=== PATIENT | female | born 1960 | race American Indian/Alaskan Native ===

== ENCOUNTER 2016-07-30 06:59 | Observation (INO) | payer OTHER ==
[2016-07-30] MEDS ORDERED: LIDOCAINE 1% 2 ML INJ ONE (08:06)
[2016-07-30] MEDS ORDERED: MIDAZOLAM 2 MG/2 ML VIAL ONE (08:22)
[2016-07-30] MEDS ORDERED: DEXAMETHASONE 10 MG/ML VIAL IVP ONE (08:30)
[2016-07-30] MEDS ORDERED: ceFAZolin 2 GM/DEXTROSE 100 ML IV ONE (08:30)
[2016-07-30] MEDS ORDERED: ONDANSETRON 4 MG/2 ML VIAL IVP PRN (08:37)
[2016-07-30] MEDS ORDERED: OXYCODONE/APAP 5/325 TAB PO PRN (08:37)
[2016-07-30] MEDS ORDERED: fentaNYL 100 MCG/2 ML INJ ONE ×3 (08:39→11:32)
[2016-07-30] MEDS ORDERED: PROPOFOL 200 MG/20 ML VIAL ONE (08:40)
[2016-07-30] MEDS ORDERED: D5W 1/2 NS W/ 20 KCl/L 1,000 ML IV SCH (08:45)
[2016-07-30] MEDS ORDERED: THROMBIN (RECOMBINANT) 5,000 UNIT VIAL TP ONE (10:50)
[2016-07-30 11:49] LABS: IONIZED CALCIUM 1.17 MMOL/L (1.12-1.30)
--- NOTE | 2016-07-30 12:34 | GOP ---
[f rep st] OPERATIVE REPORT DATE OF OPERATION: 07/30/2016 SURGEON: John Koenig MD FRAUD PREVENTION ANALYST: Dr. Agustin Canchola. ANESTHESIA: General endotracheal. PREOPERATIVE DIAGNOSIS: Papillary carcinoma of thyroid. POSTOPERATIVE DIAGNOSIS: Papillary carcinoma of thyroid. PROCEDURE PERFORMED: Procedure planned and performed: Total thyroidectomy with possible right peritracheal node dissection. FINDINGS: Large right thyroid carcinoma invading into the strap musculature with extensive right paratracheal adenopathy, treated by total thyroidectomy with right paratracheal node dissection right and pretracheal node dissection. ESTIMATED BLOOD LOSS: 50 mL. DESCRIPTION OF PROCEDURE: The patient was placed on the operating table in the supine position. After induction of adequate general endotracheal anesthesia, sterile prep of the anterior neck was performed in the standard manner for thyroidectomy. The area surrounding the proposed incision was infiltrated utilizing 1% lidocaine with 1:100,000 parts of epinephrine. Sterile prep and drape was then completed. A curvilinear incision was then created midway between the cricoid cartilage and the sternal notch. The incision extended approximately 3 cm to either side of the midline. The incision was then carried down through the subcutaneous tissues and then through the platysma muscle. Flaps were elevated superiorly and inferiorly in a subplatysmal plane. The strap muscles were identified and then vertical division of the strap muscle was performed, reflecting the strap muscles laterally. Initially, the right thyroid lobe was addressed. Dissection proceeded along the superior and lateral aspect. It was noted that the process in the thyroid which had been previously biopsied and found to be consistent with papillary carcinoma, was invading the strap musculature. A portion of the strap musculature was transected and left in continuity with the right thyroid lobe. As dissection proceeded further cephalad, the superior thyroid pedicle was encountered. This was clamped, cut and tied with 2 2-0 silk ties distally and 2 -0 silk suture ligatures proximally. The superior pedicle was clamped in 2 separate portions. Once this was completed, further dissection proceeded along the superior aspect of the thyroid lobe. It was noted to have moderate infiltration of the mass into the surrounding strap musculature , and these muscle fibers were divided. Dissection then proceeded along the posterior aspect of the thyroid and inferior lobe. The inferior vascular pedicle was clamped, cut, and tied with 2- 0 silk ties. Dissection then proceeded in the tracheoesophageal groove and the recurrent laryngeal nerve was identified. This was dissected from distal to proximal and as this was performed, numerous enlarged lymph nodes were encountered. The thyroid tissue was then divided in the region of Kearney's ligament. This allowed reflection of the right thyroid lobe along the anterior aspect of the trachea. At this point, attention was directed to the left thyroid lobe. The strap musculature was then reflected off the left thyroid lobe. Initially, the superior vascular pedicle was encountered and this was clamped, cut and tied with a 2-0 silk tie distally and a 2-0 silk suture ligature proximally. Further dissection then proceeded along the interior aspect of the thyroid. An apparent parathyroid was encountered. This was reflected free from the thyroid tissue. The interior vascular pedicle was clamped, cut, and tied with 2-0 silk ties. Dissection then proceeded along the posterior aspect of the thyroid in the immediately supra capsular plane. As dissection proceeded further, the recurrent laryngeal nerve was identified. Its continuity was maintained . Dissection of the thyroid tissue off the trachea was performed, keeping the recurrent laryngeal nerve under direct visualization. The soft tissues of Kearney 's ligament were treated with the bipolar electrocautery and then sharply divided. Further division of the soft tissues between the thyroid and the trachea was performed utilizing Bovie electrocautery, and the thyroid gland was handed off. The gland was reexamined and no residual parathyroid tissue was noted to be present in continuity with the thyroid gland. The thyroid tissue was marked with a silk suture on its superior pole of the right thyroid lobe. Attention was then directed to right paratracheal node dissection. A number of enlarged lymph nodes had been encountered during the previous thyroidectomy. Attention was directed to the right recurrent laryngeal nerve. This was dissected from the region of the cricoarytenoid joint inferiorly almost to its passage into the upper chest. During this dissection, the carotid artery and innominate artery were encountered. Dissection of the large mass of lymph nodes in the paratracheal region was then performed, keeping the recurrent laryngeal nerve under direct visualization. Once the large packet of enlarged lymph nodes was removed, hemostasis was obtained by use of the bipolar electrocautery. After the large paratracheal node packet had been removed, keeping the recurrent laryngeal nerve intact and under close observation, attention was directed to an enlarged pretracheal node. This was removed utilizing Bovie electrocautery. The wound was then reexamined. A number of small bleeders were treated with the bipolar electrocautery. A 10-Thai Austyn-Tirado drain was then draped into the wound and sutured into place along the left lateral aspect of the wound. This was sutured in place with 2-0 silk suture ligature. The strap muscles were reapproximated in the vertical midline utilizing 3-0 Vicryl sutures , a deep layer closure of the wound was performed with interrupted 4-0 Monocryl sutures and the skin was closed with a running, locked 5-0 Prolene suture. At this point, the procedure was terminated. The patient was awakened and transferred to the post anesthesia recovery area in stable condition. FLUIDS REPLACED: 1200 mL. COMPLICATIONS: None. /[id number]/MODL MTDD
[2016-07-30] MEDS: HYDROCOD/APAP 7.5/325 IN 15ML UDCUP PO PRN ×2 (14:04→17:57)
--- NOTE | 2016-07-30 17:00 | SOAPPROG ---
SOAP Progress Note Assessment/Plan: Pt s/p total thyroidectomy with ode dissectiojn. Pt doing well. No numbness or tingling. o: neck - dressing intact Ionized calcium has not been updated yet. Plan: Pt doing well s/p total thyroid. plan for discharge in am. 07/30/16 16:50 Objective: Vital Signs Temp Pulse Resp BP Pulse Ox 36.4 C 74 12 125/76 H 96 07/30/16 15:32 07/30/16 15:32 07/30/16 15:32 07/30/16 15:32 07/30/16 15:32 07/29/16 07/30/16 07/31/16 05:59 05:59 05:59 Intake Total 1250 Output Total 65 Balance 1185 - Pending Discharge Pending Discharge Within 24 Hours: Yes Pending Discharge Date: 07/31/16 Pending Discharge Time: 11:00 ICD10 Worksheet Patient Problems: Problems Problem Status Onset Thyroid ca Acute - ICD10 Problem Qualifiers (1) Thyroid ca
[2016-07-30 20:54] LABS: IONIZED CALCIUM 1.12 MMOL/L (1.12-1.30)
[2016-07-31] MEDS: HYDROCOD/APAP 7.5/325 IN 15ML UDCUP PO PRN ×2 (03:33→09:26)
[2016-07-31 03:38] VITALS: O2SAT 96
[2016-07-31 05:12] LABS: IONIZED CALCIUM 1.12 MMOL/L (1.12-1.30)
[2016-07-31 08:13] VITALS: BP 120/75; PULSE 60; RESP 16; TEMP 97.4
--- NOTE | 2016-07-31 09:04 | SOAPPROG ---
SOAP Progress Note Assessment/Plan: Assessment: POD 1 s/p total thyroidectomy. Doing quite well. Calcium 1.12 -- no numbness/tingling. Drain removed. Dressing changed. - D/c home this AM -- she has prescriptions for home already - She will take 2 tums 3 times per day for the next 1 week - Follow-up 1 week for suture removal as scheduled 07/31/16 09:02 Subjective: POD 1 s/p total thyroidectomy. Doing well. Had difficulty sleeping last night. Pain is minimal. Slight sore throat. Objective: Vital Signs Temp Pulse Resp BP Pulse Ox 36.3 C 60 16 120/75 96 07/31/16 08:00 07/31/16 08:00 07/31/16 08:00 07/31/16 08:00 07/31/16 03:36 07/30/16 07/31/16 08/01/16 05:59 05:59 05:59 Intake Total 3250 Output Total 115 Balance 3135 Voice strong, no stridor Dressing removed Neck flat Drain removed Dressing replaced ICD10 Worksheet Patient Problems: Problems Problem Status Onset Thyroid ca Acute
== END 2016-07-31 11:40 | disposition home or self-care (01) ==
LOC: F3E 06:59
PROVIDERS: ADMIT Otolaryngology; ATTEND Otolaryngology
PROC: 07B10ZX Excision of Right Neck Lymphatic, Open Approach, Diagnostic (ICD-10-PCS; principal; 2016-07-30 08:30)
PROC: 0GTH0ZZ Resection of Right Thyroid Gland Lobe, Open Approach (ICD-10-PCS; principal; 2016-07-30 08:30)
DX: C73 Malignant neoplasm of thyroid gland (principal); C77.0 Secondary and unspecified malignant neoplasm of lymph nodes of head, face and neck
CPT/HCPCS: 38510; 60220; G0378; J0690; J2250; J2704; J3010

== ENCOUNTER → 2016-09-09 | Outpatient (CLI) | payer OTHER | LOC: FIMAGING 12:16 | PROVIDERS: ATTEND Internal Medicine | DX: C73 Malignant neoplasm of thyroid gland (principal) | CPT/HCPCS: A9517 ==